=== PATIENT | female | born 1990 | race Two or more races ===

== ENCOUNTER 2019-10-15 17:05 | Emergency (ER) | payer OTHER ==
[2019-10-15 18:05] VITALS: BP 137/93
--- NOTE | 2019-10-15 20:39 | ER Document Report ---
HPI - HPI Time Seen by Provider: 10/15/19 20:05 Pain Level: Denies Context: Patient is a 29-year-old female that comes to the emergency department for chief complaint of 4 days of congestion, cough, sneezing, generalized body aches. She states she had a migraine a couple of days ago but this resolved. She denies chest pain, difficulty breathing, current headache, vomiting. She has 2 sick family members with similar symptoms. Her was exposed to someone who was positive for COVID-19. Patient is on oral contraceptive, does not smoke, does not take any other medications, no past medical history except appendectomy. Past Medical History - General Information source: Patient - Social History Smoking Status: Never Smoker Frequency of alcohol use: None Drug Abuse: None Lives with: Family Family History: Reviewed & Not Pertinent - Medical History Medical History: Negative Past Surgical History: Reports: Hx Appendectomy - Immunizations Immunizations up to date: Yes Hx Diphtheria, Pertussis, Tetanus Vaccination: Yes Vertical Provider Document - CONSTITUTIONAL General Appearance: WD/WN, No Apparent Distress - HEENT HEENT: Atraumatic, Normocephalic. negative: Normal ENT Exam - Mild nasal congestion, nontender sinuses, unremarkable oropharyngeal exam, unremarkable ears, unremarkable eye exam - NECK Neck: Normal Inspection - RESPIRATORY Respiratory: Breath Sounds Normal, No Respiratory Distress. negative: Wheezing - CARDIOVASCULAR Cardiovascular: Regular Rate, Regular Rhythm - GI/ABDOMEN Gastrointestinal: Abdomen Soft, Abdomen Non-Tender. negative: Abdomen Tender - BACK Back: Normal Inspection - MUSCULOSKELETAL/EXTREMETIES Musculoskeletal/Extremeties: MAEW, FROM, Non-Tender - NEURO Level of Consciousness: Awake, Alert, Appropriate Motor/Sensory: No Motor Deficit, No Sensory Deficit - DERM Integumentary: Warm, Dry, No Rash Course - Re-evaluation Re-evalutation: Patient is alert, talkative, well-appearing. She has mild sinus congestion on exam. No other concerning findings. Unremarkable vital signs. Patient with multiple sick family members with similar symptoms. 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 Patient states understanding and agreement with plan. - Vital Signs Vital signs: Temp Pulse Resp BP Pulse Ox 98.7 F 84 16 137/93 H 100 10/15/19 17:51 10/15/19 17:51 10/15/19 17:51 10/15/19 17:51 10/15/19 17:51 Discharge - Discharge Clinical Impression: Close exposure to COVID-19 virus Upper respiratory infection Qualifiers: URI type: unspecified URI Qualified Code(s): J06.9 - Acute upper respiratory infection, unspecified Condition: Stable Disposition: HOME, SELF-CARE Additional Instructions: Your evaluation at this time is reassuring. This does appear to be a viral illness and should resolve with time. You have been tested for COVID-19, see additional instructions below, you will be contacted with your results and additional instructions. Drink plenty of fluids, rest, you can take [id number] medications such as antihistamines, decongestants, Tylenol, et c. Flonase nasal spray for the fluid behind your eardrums can help as well. Follow-up with primary care. Return for any concerning symptoms including difficulty breathing, spiking fevers, vomiting, or any other concerning or worsening symptoms. As a person under investigation for COVID-19, the [place] Department of Health and Human Services (division on public health) advises you to adhere to the following guidance until your test results are reported to you. If your test result is positive, you will receive additional information from your provider a nd your local health department at that time. Remain at home until you are cleared by the health provider or public health authorities. Keep a log of visitors to your home, notify any visitors to your home of your isolation status. If you plan to move to a new address or leave the [facility], notify the local health department in your County. Call your Doctor or seek care if you have an urgent medical need. Before seeking medical care, call him to get instructions from the provider before arriving at the medical office, clinic, or hospital. Notify them that you are being tested for the virus (COVID-19) so that arrangements can be made, as necessary, to prevent transmission to others in the healthcare setting. Next, notify the local health department in your [facility]. If a medical emergency arises and you need to call 911, inform the first responders that you are being tested for the virus that causes COVID-19. Next, notify the local health department in your county. Forms: Return to Work
== END 2019-10-15 22:03 | disposition home or self-care (01) ==
LOC: ER 17:05
DX: J06.9 Acute upper respiratory infection, unspecified (principal); R05 Cough; R06.7 Sneezing; R09.81 Nasal congestion; Z79.3 Long term (current) use of hormonal contraceptives
CPT/HCPCS: 99283; 87635; C9803